=== PATIENT | female | born 1965 | race Caucasian/White ===

== ENCOUNTER 2021-07-10 12:20 | Inpatient (IN) | payer SELFPAY ==
[~2021-07-10] VITALS: Ht 152.4 cm; Wt 53.5 kg
--- NOTE | 2021-07-10 13:10 | NUR ---
COVID swab collected and ytaken to LAB.
--- NOTE | 2021-07-10 13:34 | NUR ---
Dr Hollis at the bedside for MSE.
[2021-07-10 13:59] LABS: MEAN CORPUSCULAR HEMOGLOBIN 28.9 uug (24.7-32.8); MEAN CORPUSCULAR VOLUME 84.5 fL (75.5-95.3); PLATELET COUNT (AUTO) 227 K/uL (179-408)
[2021-07-10] MEDS ORDERED: MORPHINE SULFATE 4 MG/1 ML DISP.SYRIN IM ONE (14:00)
[2021-07-10] MEDS ORDERED: ASPIRIN 325 MG TABLET PO ONE (14:00)
[2021-07-10 14:06] LABS: CREATININE 0.7 mg/dL (0.6-1.3); POTASSIUM 3.4 mmol/L (3.5-5.1)
[2021-07-10 14:18] LABS: BILIRUBIN,DIRECT 3.8 mg/dL (0.0-0.2); BILIRUBIN,TOTAL 4.5 mg/dL (0.2-1.0); TOTAL PROTEIN, SERUM 7.3 g/dL (6.4-8.2)
[2021-07-10] MEDS ORDERED: MORPHINE SULFATE 4 MG/1 ML DISP.SYRIN ONE (14:29)
[2021-07-10] MEDS ORDERED: ASPIRIN 325 MG TABLET ONE (14:29)
[2021-07-10] MEDS ORDERED: IV NORMAL SALINE 250 ML IV ONE (14:57)
[2021-07-10] MEDS ORDERED: SWABABLE VALVE TRANSFER SET EA MC ONE (14:57)
[2021-07-10] MEDS ORDERED: IOHEXOL 350 100 ML INFUS..BTL ONE (14:57)
--- NOTE | 2021-07-10 15:00 | NUR ---
Pt signed consent for CTA, placed in the chart.
[2021-07-10] MEDS ORDERED: CEFTRIAXONE 1 G in IV DEXTROSE 5% 50 ML IV ONE (16:15)
[2021-07-10] MEDS ORDERED: AZITHROMYCIN 250 MG TABLET PO ONE (16:15)
[2021-07-10] MEDS ORDERED: CEFTRIAXONE /D5W 50ML IVPB **ER PYXIS IV ONE (16:30)
[2021-07-10] MEDS ORDERED: AZITHROMYCIN 250 MG TABLET ONE (16:30)
[2021-07-10] MEDS ORDERED: ACETAMINOPHEN 325 MG TABLET PO PRN (17:00)
[2021-07-10] MEDS ORDERED: ONDANSETRON 4 MG/2 ML VIAL IV PRN (17:00)
[2021-07-10] MEDS ORDERED: Z GUARD REMEDY PASTE 57 GM TUBE TOP PRN (17:00)
[2021-07-10] MEDS ORDERED: MAGNESIUM HYDROXIDE 30 ML LIQUID UDC PO PRN (17:00)
--- NOTE | 2021-07-10 18:10 | NUR ---
Patient transferred on to unit via wheelchair from ER. A&Ox4. [place] speaking. No complains of chest pain verbalized. No signs of acute distress noted. Vital signs stable. On room air, sating 98%. Skin intact. Right AC 20g intact, flushing well. Safety precautions in place. All needs attended to. 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
[2021-07-10 20:00] VITALS: BP 115/72
[2021-07-10 20:25] VITALS: BP 115/72
[2021-07-10] MEDS: IV 1/2NS 1000 ML 1,000 ML IV PRN (23:51)
[2021-07-11 00:33] VITALS: BP 106/57
[2021-07-11 05:37] VITALS: BP 107/60
--- NOTE | 2021-07-11 06:42 | NUR ---
Non eventful night. No complaint of chest pain the whole night. All needs attended and met. VS stable.
[2021-07-11 07:21] LABS: HEMATOCRIT 36.8 % (31.2-41.9); MEAN CORPUSCULAR HEMOGLOBIN 28.7 uug (24.7-32.8); MEAN CORPUSCULAR VOLUME 84.4 fL (75.5-95.3); PLATELET COUNT (AUTO) 224 K/uL (179-408)
[2021-07-11 07:37] LABS: CREATININE 0.7 mg/dL (0.6-1.3); MAGNESIUM 2.2 mg/dL (1.8-2.4); PHOSPHOROUS 3.1 mg/dL (2.5-4.9); POTASSIUM 3.5 mmol/L (3.5-5.1); TOTAL PROTEIN, SERUM 6.9 g/dL (6.4-8.2)
--- NOTE | 2021-07-11 08:00 | NUR ---
awake alert and oriented x3, denies cp or sob and able to verbalize needs well afebrile SR on monitor
--- NOTE | 2021-07-11 09:14 | NUR ---
seen by dr madrigal see notes. patient status change to med/surg
[2021-07-11 11:05] VITALS: BP 101/56
[2021-07-11] MEDS: IV 1/2NS 1000 ML 1,000 ML IV PRN (13:41)
[2021-07-11 15:09] VITALS: BP 104/57
--- NOTE | 2021-07-11 18:15 | NUR ---
NO ACUTE CHANGE FROM AM ASSESSMENT
[2021-07-11 20:30] VITALS: BP 130/85
[2021-07-12] MEDS: IV 1/2NS 1000 ML 1,000 ML IV PRN (03:15)
[2021-07-12 04:20] VITALS: BP 117/94
--- NOTE | 2021-07-12 06:38 | NUR ---
Received pt awake on initial rounds. She is alert and oriented x4, able to make needs known. Tylenol PRN given d/t mild pain on left hand. She slept throughout the night, easily arousable for care. IV site on L hand g#22 remains patent and infusing well with 1/2 NS 1 L at 75 ml hr. All needs attended. Call light placed within reach. Frequent visual checks done. Will endorse to next shift for continuity of care.
[2021-07-12 06:45] LABS: HEMATOCRIT 36.1 % (31.2-41.9); MEAN CORPUSCULAR HEMOGLOBIN 28.8 uug (24.7-32.8); MEAN CORPUSCULAR VOLUME 84.3 fL (75.5-95.3); PLATELET COUNT (AUTO) 241 K/uL (179-408)
[2021-07-12 07:03] LABS: BILIRUBIN,DIRECT 3.3 mg/dL (0.0-0.2); BILIRUBIN,TOTAL 3.8 mg/dL (0.2-1.0); MAGNESIUM 2.3 mg/dL (1.8-2.4); PHOSPHOROUS 3.6 mg/dL (2.5-4.9); TOTAL PROTEIN, SERUM 6.7 g/dL (6.4-8.2)
[2021-07-12 07:12] LABS: THYROID STIMULATING HORMONE 1.319 mIU/mL (0.358-3.740)
--- NOTE | 2021-07-12 07:30 | NUR ---
received patient laying in bed in no apparent distress. patient is alert and oriented x4, able to make needs known, urdu speaking, iv site to left hand in place and patent. patient with v/s wnl at this time, denies any pain or discomfort, explains wish to go to back home. I reminded patient that the primary physician will be coming to do rounds and if ordered she can be discharged, patient states understanding.
--- NOTE | 2021-07-12 08:30 | NUR ---
Dr. Kingsley made rounds, per Dr. Kingsley patient to be discharged today and to have her follow up with a engine mechanic.
--- NOTE | 2021-07-12 10:32 | NUR ---
Returned phone call to DTR as requested, all questions answered.
[2021-07-12 10:57] VITALS: BP 125/69
--- NOTE | 2021-07-12 11:30 | NUR ---
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 patient states that son will come and pick her up. reminded patient to notify me when son was here as to take her downstairs.
--- NOTE | 2021-07-12 11:45 | NUR ---
patient taken downstairs with all discharge paperwork, in stable condition
[2021-07-13 22:40] LABS: HEPATITIS B SURFACE AG Negative
== END 2021-07-12 11:45 | disposition home or self-care (01) | DRG 446 ==
LOC: ER 12:20 → TELE3 17:28 → MEDSURG3 07-11 08:27
PROVIDERS: ADMIT Internal Medicine; ATTEND Internal Medicine
DX: K83.1 Obstruction of bile duct (principal); K76.0 Fatty (change of) liver, not elsewhere classified; Z20.822 Contact with and (suspected) exposure to COVID-19; R10.13 Epigastric pain; R16.0 Hepatomegaly, not elsewhere classified
CPT/HCPCS: 36415; 70030-TC; 71045; 71275; 83690; 83735; 84100; 84443; 85025; 85610; 85730; 86235; 86704; 86705; 86803; 87340; 93005; 93307; A4663; G0378; J0696; J2270; J3490; J7050; Q0144; Q9967

== ENCOUNTER 2022-06-01 00:01 | Emergency (ER) | payer SELFPAY ==
[~2022-06-01] VITALS: Ht 165.1 cm; Wt 72.6 kg
--- NOTE | 2022-06-01 00:10 | NUR ---
Dr. Hernadez at [facility]. [facility] [place] in progress.
[2022-06-01] MEDS ORDERED: ASPIRIN 81 MG TAB.CHEW ONE (00:14)
[2022-06-01] MEDS ORDERED: ASPIRIN 81 MG TAB.CHEW PO ONE (00:15)
[2022-06-01 00:42] LABS: CARBON DIOXIDE 28 mmol/L (21-32); CHLORIDE 106 mmol/L (98-107); CREATININE 0.8 mg/dL (0.6-1.3); GLUCOSE 110 mg/dL (74-106); UREA NITROGEN, BLOOD 14 mg/dL (7-18)
[2022-06-01 00:48] LABS: HEMATOCRIT 38.9 % (31.2-41.9); MEAN CORPUSCULAR HEMOGLOBIN 28.4 uug (24.7-32.8); MEAN CORPUSCULAR VOLUME 81.2 fL (75.5-95.3); PLATELET COUNT (AUTO) 270 K/uL (179-408)
--- NOTE | 2022-06-01 00:55 | NUR ---
Chaperoned with Dr. Hernadez.
[2022-06-01 00:59] LABS: ALANINE AMINOTRANSFERASE 25 U/L (14-59); ALKALINE PHOSPHATASE 79 U/L (50-136); ASPARTATE AMINOTRANSFERASE 18 U/L (15-37); BILIRUBIN,DIRECT < 0.1 mg/dL (0.0-0.2); BILIRUBIN,TOTAL 0.2 mg/dL (0.2-1.0); TOTAL PROTEIN, SERUM 7.3 g/dL (6.4-8.2)
--- NOTE | 2022-06-01 03:00 | NUR ---
Patient discharged to home in stable condition. Written and verbal after care instructions given. Patient verbalizes understanding of instructions. Stressed follow up or return to ER for worsening s/s. Patient is a/ox4, NAD noted. Patient is able to walk with steady gait. Patient is accompanied by family
[2022-06-01 03:42] VITALS: BP 123/67
== END 2022-06-01 03:00 | disposition home or self-care (01) ==
LOC: ER 00:05
DX: R07.9 Chest pain, unspecified (principal); R03.0 Elevated blood-pressure reading, without diagnosis of hypertension
CPT/HCPCS: 36415; 71045; 84484; 85025; 93005; A4663